=== PATIENT | male | born 1935 | race Caucasian/White ===

== ENCOUNTER 2016-11-06 07:47 | Day surgery (SDC) | payer MEDICARE ==
--- NOTE | ~2016-11-06 | OP ---
Record Of Operation [facility] [address] [place]. [address] NAME: DESMOND MCKEON : 35 STATUS : [facility] UNIT#: [id number] AGE: 81 ADM/REG DATE : 11/06/16 MR#: [id number] REPORT SERV DATE: 11/06/16 DICTATED BY: ANDRY PAUL DATE: 11/06/16 REPORT STATUS : Draft TRANSCRIBED BY: MODL DATE: 11/06/16 DATE OF PROCEDURE: 11/06/2016 PREOPERATIVE DIAGNOSIS: Left ureteral and renal calculi. POSTOPERATIVE DIAGNOSIS: Left ureteral and renal calculi. PROCEDURE PERFORMED: Cystoscopy, bilateral retrograde pyelogram, removal of left ureteral stone, flexible ureterorenoscopy with removal of two renal calculi, and left stent placement. ANESTHESIA: General. ESTIMATED BLOOD LOSS: Less than 5 mL. INDICATIONS: This is an 81-year-old white male with complaints of flank pain and hematuria leading to investigation with CT scan. This demonstrated a large proximal left ureteral stone with obstruction with a couple of other nonobstructing left-sided stones noted as well. We are planning endoscopic management. Risks of infection, bleeding, failure, need for further surgery have been discussed. PROCEDURE IN DETAIL: The patient was taken to the operating room and underwent a general anesthetic. He was placed in the lithotomy position on the table, and his external genitalia were sterilely prepped and draped. The 22-Hong Konger cystoscope sheath with 30-degree lens was inserted under direct vision per urethra with the aid of the video monitor. The anterior urethra was normal. The prostatic urethra showed evidence of a previous TURP and was wide open. The bladder was inspected and visibility was excellent. There was a stone that at the left orifice. The right orifice was normal. There were no mass lesions within the bladder. A pair of flexible grasping forceps were used to grab the stone located at the left ureteral orifice and gently extracted from the orifice and removed it intact. It was about 8 or 9 mm in size or so. A left retrograde pyelogram was then obtained showing him a fairly massively dilated ureter down to the UVJ. The renal collecting system was not quite as dilated. I was unable to see any specific stones on retrograde, but recalled him to have at least one, if not two, on previous CT imaging. An 0.038 guidewire was then advanced up into the collecting system of the kidney under fluoroscopic guidance. A 9.5/11-Hong Konger ureteral access sheath with obturator was advanced over this guidewire up into the mid ureter and a second guidewire was placed again into the collecting system of the kidney under fluoroscopic guidance. The sheath and obturator were replaced over one of the two guidewires leaving the other in place as a safety wire. The flexible ureteroscope was then advanced up through the access sheath into the mid ureter. It was actually a bit difficult to advance it up in the kidney because of the dilation and tortuosity of the ureter. The renal collecting system was not massively hydronephrotic, however. The collecting system was systematically inspected and visibility was excellent. A small lower pole left renal stone was removed using an NGage basket. He had a larger mid calyceal stone, which was grasped with the NGage basket and removed as well. The ureter was reinspected as the ureteroscope was withdrawn and no other stones or significant findings Record Of [address] [address] NAME: DESMOND MCKEON : 35 STATUS : [facility] PAT#: [id number] AGE: 81 ADM/REG DATE : 11/06/16 MR#: [id number] REPORT SERV DATE: 11/06/16 DICTATED BY: ANDRY PAUL DATE: 11/06/16 REPORT STATUS : Draft TRANSCRIBED BY: MARC DATE: 11/06/16 other than the dilatation were noted. Following extraction of those two calculi, the cystoscope was reinserted over the guidewire and a 6-Hong Konger x 26 cm Contour stent was advanced over the guidewire such that the proximal end of the stent was observed to coil in the collecting system of the kidney under fluoroscopic guidance and the distal end of the stent was visually observed to coil in the bladder following removal of the guidewire. The bladder was drained. All endoscopic apparatus was removed, and the patient was taken to recovery in stable condition. [place]/MARC Machelle Smith#: [id number] / [id number] CC: Andry Paul M.D.
[~2016-11-06 07:47] MED LIST: ALEVE220 MG PO; AMARYL1 MG PO; AMB5 PO; ANDROGEL5 TOP; APRES25 PO; ARICEPT5 PO; ASAB PO; BREO; BREO ELLIPTA INH; BREO INH; CAT2 PO; COREG12 PO; CYMBALTA60 PO; DIOV160 PO; FERROUS SULF325 M1 PO; FLOMAX4 PO; FORTAMET500 MG PO; GLUCPH PO; HYDROCHLOROT25 MG PO; IMDUR30 PO; KLOR-CON M1010 MEQ PO; KLOR-CON M2020 MEQ PO; LEVAQUIN5T PO; LIPITOR40 PO; LOP25 PO; LORTAB 5 PO; LYRICA50 PO; MAGOX4 PO; MAGTRATE500 MG PO; MELA3 PO; MELATONIN5 M1 PO; METANX PO; NEUR100 PO; NEUR300 PO; NEUR600 PO; NEXIUM40 PO; NORTHERA PO; NORV10 PO; NORV5 PO; ONGLYZA5 MG PO; PLAVIX PO; PRAVAC PO; PRILOSEC40 MG PO; PROAIR HFA INH; PROTONIX PO; RAPAFLO8 MG PO; SIN25 PO; SLOWMAG; SLOWMAG PO; TESS PO; TOPXL25 PO; TRADJENTA5 MG PO; VITAMIN D31000 UNIT PO; ZOL100 PO
[2016-11-06 08:22] LABS: BASOPHILS 0.2 %; BASOPHILS ABSOLUTE 0.02 10/3/uL (0.0-0.16); EOSINOPHILS 4.4 %; EOSINOPHILS ABSOLUTE 0.35 10/3/uL (0.0-0.53); HEMOGLOBIN 13.1 g/dL (13.6-17.8); IMMATURE GRANULOCYTES 0.2 %; IMMATURE GRANULOCYTES ABSOLUTE 0.02 10/3/uL (0.0-0.11); LYMPHOCYTES 27.6 %; LYMPHOCYTES ABSOLUTE 2.22 10/3/uL (0.67-4.30); MEAN CORPUS HGB CONC 33.6 g/dL (32.0-36.0); MEAN CORPUSCULAR HEMOGLOB 31.6 pg (26.0-34.0); MEAN PLATELET VOLUME 9.6 fL (9.2-13.0); MONOCYTES 10.8 %; MONOCYTES ABSOLUTE 0.87 10/3/uL (0.21-1.20); NEUTROPHILS 56.8 %; NEUTROPHILS ABSOLUTE 4.56 10/3/uL (2.02-8.40); PLATELET COUNT 179 10/3/uL (150-400); RBC DISTRIBUTION WIDTH 13.7 % (12.0-16.0); RED CELL COUNT 4.15 10/6/uL (4.7-6.1)
[2016-11-06 08:23] LABS: MANUAL DIFF NO %
[2016-11-06 08:31] LABS: INTERNATIONAL NORMAL RATI 1.1 UNITS (-)
[2016-11-06 08:32] LABS: BUN (BLOOD UREA NITROGEN) 22 MG/DL (6-23); CALCIUM, SERUM 9.1 MG/DL (8.5-10.4); CHLORIDE, SERUM 109 MMOL/L (96-112); CO2 (CARBON DIOXIDE) 31 MMOL/L (24-34); CREATININE 1.01 MG/DL (0.70-1.30); GFR AFRICAN AMERICAN 80 ML/MIN (>=60); GFR NON AFRICAN AMERICAN 69 ML/MIN (>=60); GLUCOSE, SERUM 122 MG/DL (60-99); PARTIAL THROMBO TIME 35.7 SEC (22.5-37.2); POTASSIUM, SERUM 4.4 MMOL/L (3.5-5.3); SODIUM, SERUM 143 MMOL/L (135-148)
[2017-01-10] MEDS ORDERED: PCET PO (10:53)
== END 2016-11-06 14:29 | disposition home or self-care (01) ==
LOC: SDC 07:47
PROVIDERS: Urology
PROC: 0TC78ZZ Extirpation of Matter from Left Ureter, Via Natural or Artificial Opening Endoscopic (ICD-10-PCS; principal; 2016-11-06 08:45)
PROC: 0T778DZ Dilation of Left Ureter with Intraluminal Device, Via Natural or Artificial Opening Endoscopic (ICD-10-PCS; 2016-11-06 08:45)
DX: N20.2 Calculus of kidney with calculus of ureter (principal); E11.9 Type 2 diabetes mellitus without complications; I10 Essential (primary) hypertension; I25.10 Atherosclerotic heart disease of native coronary artery without angina pectoris; J44.9 Chronic obstructive pulmonary disease, unspecified; I95.1 Orthostatic hypotension; R25.1 Tremor, unspecified; F32.9 Major depressive disorder, single episode, unspecified; R32 Unspecified urinary incontinence; E78.00 Pure hypercholesterolemia, unspecified; K21.9 Gastro-esophageal reflux disease without esophagitis; G57.93 Unspecified mononeuropathy of bilateral lower limbs; F41.9 Anxiety disorder, unspecified; F03.90 Unspecified dementia, unspecified severity, without behavioral disturbance, psychotic disturbance, mood disturbance, and anxiety; Z95.5 Presence of coronary angioplasty implant and graft; Z90.79 Acquired absence of other genital organ(s); Z85.820 Personal history of malignant melanoma of skin; Z87.442 Personal history of urinary calculi; Z98.52 Vasectomy status; Z90.49 Acquired absence of other specified parts of digestive tract; Z88.0 Allergy status to penicillin; Z87.891 Personal history of nicotine dependence
CPT/HCPCS: 71010; 74420; 80048; 82962; 85025; 85610; 85730; 93005; C1758; C2617; J2405; J2710; J3010; Q9967

== ENCOUNTER 2016-11-20 10:00 | Inpatient (IN) | payer MEDICARE ==
--- NOTE | ~2016-11-20 | DS ---
Discharge Summary [address] [place]. [address] NAME: DESMOND MCKEON : 35 STATUS : DIS IN PAT#: [id number] AGE: 81 ADM/REG DATE : 11/20/16 MR#: [id number] REPORT SERV DATE: 12/05/16 DICTATED BY: ANDRY PAUL DATE: 12/04/16 REPORT STATUS : Draft TRANSCRIBED BY: MARC DATE: 12/04/16 Data Collection from hospitalization DISCHARGE DIAGNOSIS(ES): 1. Gross hematuria. 2. Clot retention. 3. Right renal mass. 4. Diabetes. 5. Hypertension. 6. Former smoker. 7. Arthritis. 8. Chronic obstructive pulmonary disease. 9. Mcgovern's esophagus. 10.Dysphagia. 11.Neuropathy. 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 13.Anxiety. 14.Coronary artery disease. CONSULTATIONS: None. PROCEDURES PERFORMED: 1. Cystoscopy, bilateral retrograde pyelogram, right flexible ureterorenoscopy with biopsy and fulguration of right renal pelvic tumor, bladder biopsy and fulguration 11/23/2016. 2. CT scan of the abdomen and pelvis without contrast 11/20/2016. PATHOLOGY: Urine right renal collecting system. Cytology (thin prep)-urinary atypia favor reactive (acute inflammation). Renal pelvic "mass" right biopsy-fibrin clumps with acute inflammatory cells, negative for malignancy. "Lesion" adjacent to right orifice biopsies- benign mucosa with acute and chronic inflammation. No tumor seen. Urinary bladder posterior wall biopsy-benign mucosa with cystitis cystica and hemorrhage. No tumor seen. MEDICATIONS: 1. Lipitor 40 mg at bedtime. 2. Sinemet CR one tablet three times a day. 3. Coreg 12.5 mg twice a day. 4. Catapres 0.2 mg as needed. 5. Aricept 5 mg at bedtime. 6. Cymbalta 60 mg daily. 7. Ferrous sulfate 325 mg at noon. 8. Sierra 180 mg daily. 9. Neurontin 300 mg three times a day. 10.Amaryl 1 mg daily. 11.Apresoline 25 mg three times a day. 12.Mag-Ox 400 mg three times a day. 13.Melatonin 5 mg at bedtime. 14.Glucophage 500 mg twice a day. 15.Lopressor 12.5 mg daily. Discharge Summary [address] [place]. [address] NAME: DESMOND MCKEON : 35 STATUS : DIS IN PAT#: [id number] AGE: 81 ADM/REG DATE : 11/20/16 MR#: [id number] REPORT SERV DATE: 12/05/16 DICTATED BY: ANDRY PAUL DATE: 12/04/16 REPORT STATUS : Draft TRANSCRIBED BY: MODL DATE: 12/04/16 16.Prilosec 40 mg daily. 17.Percocet 5/325 one tablet every four hours as needed. 18.Potassium chloride SR 10 mEq twice a day. 19.Onglyza 5 mg daily. 20.Rapaflo 8 mg daily. 21.Northera 100 mg three times a day. 22.ProAir as instructed. CONDITION AT DISCHARGE: Stable. DISPOSITION: The patient was discharged home on 2000-calorie diabetic diet with activities as instructed. He would follow up with Dr. Andry Paul as instructed. He would follow up with his primary care provider as needed. HOSPITAL COURSE: This is an 81-year-old man who has a history of bilateral stone disease and persistent intermittent gross hematuria. He had been hospitalized with gross hematuria and clot retention. A CT scan was suspicious for a right renal mass as well as obstructive uropathy on the right. Treatment options were discussed, and it was elected to proceed with surgical intervention. He was admitted to the hospital at this time for further evaluation and treatment. Upon admission, the Matias catheter was going to remain in place with continuous bladder irrigation. Empiric antibiotic coverage was started. Anticoagulation would be held. We would follow serial labs. The following day, his urine was clear. He had no new complaints. On 11/23/2016, he was taken to the operating room where he underwent the above- mentioned procedure. He tolerated this well, and there were no complications. Discharge planning was performed. On 11/24/2016, he had no new complaints. Hematuria had resolved. He had had voiding symptoms prior to admission. The Matias catheter was in place and was draining well. Discharge instructions were given. Due to his improved and stable condition, he was discharged home with the above-stated instructions. Information collected by: Savanna Bauman I submit the above information as my discharge summary. [place] Andry aPul M.D. / [id number] CC: Machelle Wagner MD
--- NOTE | ~2016-11-20 | HP ---
History And Physical [place] [id number] [facility] [place]. [address] NAME: DESMOND RODRIGUEZ : 35 STATUS : ADM IN [facility]#: [id number] AGE: 81 ADM/REG DATE : 11/20/16 MR#: [id number] REPORT SERV DATE: 11/21/16 DICTATED BY: ANDRY PAUL DATE: 11/21/16 REPORT STATUS : Draft TRANSCRIBED BY: MODL DATE: 11/21/16 DATE OF ADMISSION: 11/20/2016 HISTORY: This is an 81-year-old white male who presented to the emergency room earlier today with essentially in clot retention. A Matias catheter was placed and continuous irrigation was initiated, and he has had a fair amount of clot irrigated from the bladder by the ER staff. A CT of the abdomen and pelvis was performed which demonstrated a couple of nonobstructing stones within the right kidney and some abnormal material in the right renal pelvis which could be either clot or tumor. In addition, some abnormal density material was noted in the ureter and the bladder as well. There was some degree of right hydronephrosis present. There was no specific left hydronephrosis or stone noted. Bilateral renal cysts were recognized. Mr. Rodriguez had just undergone endoscopic removal of two relatively large significantly obstructing left ureteral stones on 11/06/2016. His ureteral stent was removed last week. He had actually been having intermittent bleeding and flank pain for several weeks. He said after his stent was removed. He initially did okay while on Cipro antibiotics coverage, but as soon as this was stopped, he started bleeding again. Urologic history otherwise includes a remote TURP. MEDICAL HISTORY: Includes a history of coronary artery disease, status post coronary artery stent placement three or four years ago. He is chronically anticoagulated with aspirin and Plavix. He also has diabetes, arthritis, and COPD. SURGICAL HISTORY: Includes his recent endoscopic surgery for stones, history of two back surgeries, cardiac stent placement, bilateral inguinal hernia repair, and appendectomy. SOCIAL HISTORY: He is a . He lives with his family. He is a social drinker, and he has not smoked in many years. MEDICATION: Medication list is extensive and includes albuterol, aspirin, Lipitor, Sinemet, Coreg, Catapres, Plavix, Aricept, Cymbalta, iron, Sierra, Neurontin, Amaryl, Apresoline, Mag-Ox, melatonin, Mobic, Glucophage, Lopressor, Prilosec, Percocet, potassium, Onglyza, Rapaflo, Northera. ALLERGIES: HE IS ALLERGIC TO PENICILLIN. PHYSICAL EXAMINATION: GENERAL: He is a very pleasant white male in no distress at this time. He is alert, oriented, and conversive. VITAL SIGNS: He is afebrile. His vital signs are stable. Pupils equal, round, and reactive. Extraocular movements intact. Oropharynx looks clear. NECK: Supple. No adenopathy. HEART: Regular. LUNGS: Clear. ABDOMEN: Soft. Perhaps mild suprapubic and mild right upper quadrant tenderness. BACK: No significant CVA tenderness. : Penis is normal with a Matias catheter indwelling. His catheter is draining light pink History And Physical [address] [address] NAME: DESMOND RODRIGUEZ MALTESE : 35 STATUS : ADM IN [facility]#: [id number] AGE: 81 ADM/REG DATE : 11/20/16 MR#: [id number] REPORT SERV DATE: 11/21/16 DICTATED BY: ANDRY PAUL DATE: 11/21/16 REPORT STATUS : Draft TRANSCRIBED BY: MARC DATE: 11/21/16 urine with CBI. Testes, epididymitis, spermatic cords are normal. Prostate gland was not examined. EXTREMITIES: No cyanosis. LABORATORY VALUES: White cell count is 6.9, H and H 13.3 and 39.4. Urinalysis on admission showed 182 red cells and no white cells per high-powered field. CMP shows a BUN of 18, creatinine of 0.85. Liver functions are normal. PT and PTT are 13.8 and 32.4. Urine culture has not been consistent with UTI. CT of the abdomen and pelvis is as described in the HPI. IMPRESSION: 1. Gross hematuria with clot retention, now with a Matias catheter and continuous irrigation. 2. Abnormal right kidney on CT with right hydronephrosis, right renal stones, and material in abnormal density within the collecting system and ureter either consistent with blood or potential blood clot or potentially tumor. 3. Status post recent endoscopic left ureteral stone extraction. 4. Coronary artery disease with cardiac stent, chronically anticoagulated on aspirin and Plavix, now held since either Saturday or early Saturday. 5. Remote history of TURP. 6. Hyperglycemia/diabetes. PLAN: We will continue Matias and CBI and empiric antibiotic coverage as well. I have discussed the situation with the patient and his daughter who is a nurse. We are going to plan cystoscopy, clot evac if needed, retrograde studies, right ureterorenoscopy with possible biopsy fulguration and/or stone manipulation on Saturday. The procedure and risks of infection, bleeding, failure, need for further surgery, up to and including removal of the right kidney have been reviewed. We will continue to hold all anticoagulation, and we will follow serial labs for now. DS/MODL Andry Paul M.D. / [id number] CC: Machelle Wagner MD
--- NOTE | ~2016-11-20 | OP ---
Record Of Operation [facility] [address] [place]. [address] NAME: DESMOND MCEKON : 35 STATUS : ADM IN PAT#: [id number] AGE: 81 ADM/REG DATE : 11/20/16 MR#: [id number] REPORT SERV DATE: 11/23/16 DICTATED BY: ANDRY PAUL DATE: 11/23/16 REPORT STATUS : Draft TRANSCRIBED BY: MODL DATE: 11/23/16 DATE OF PROCEDURE: 11/23/2016 PREOPERATIVE DIAGNOSES: Gross hematuria, clot retention, right renal mass. POSTOPERATIVE DIAGNOSES: Gross hematuria, clot retention, right renal mass. PROCEDURE PERFORMED: 1. 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 2. Bladder biopsy and fulguration. SURGEON: Andry Paul M.D. ANESTHESIA: General. ESTIMATED BLOOD LOSS: 15 to 20 mL. INDICATIONS: This is an 81-year-old white male with a history of bilateral stone disease and persistent intermittent gross hematuria. He has been hospitalized with gross hematuria and clot retention, and a CT scan has been suspicious for a right renal mass as well as obstructive uropathy on the right. We are planning endoscopic assessment. Risk of infection, bleeding, failure, and need for further surgery have been discussed. DESCRIPTION OF PROCEDURE: The patient was taken to the operating room and underwent a general anesthetic. He was placed in the lithotomy position on the table, and his external genitalia were sterilely prepped and draped. The 22-Nepalese cystoscope sheath with 30-degree lens was inserted under direct vision per urethra with the aid of the video monitor. The anterior urethra looked normal. The prostatic urethra showed evidence of a previous TURP and was generally open. There was no overt source of bleeding within the prostate. The bladder was inspected as well. There was abnormal inflammatory change around the right orifice. The left orifice looked more normal. The bladder was moderately trabeculated. There was reddish irritative change primarily on the posterior wall, presumably from the indwelling Matias. There were no dede large tumors within the bladder. A right retrograde pyelogram was obtained that showed a very capacious ureter right down to the UVJ. The ureter was dilated and tortuous and the renal collecting system was also dilated. It looked like there was a vague filling defect in the lower portion of the renal pelvis, but it was really difficult to see. An 0.038 guidewire was advanced up into the kidney without difficulty and an 11/13-Nepalese ureteral access sheath with obturator was passed up into the mid ureter. A second guidewire was placed through the access sheath and the sheath and obturator were then reinserted over one of the two guidewires leaving the other in place as a safety wire. The flexible ureteroscope was advanced through the access sheath up to roughly the mid ureter, and this was advanced all the way up into the renal pelvis. I did not notice any overt tumors in the ureter. The visibility in the renal collecting system was somewhat poor. I aspirated almost 20 mL of bloody fluid, some of this was sent for culture and some for cytology. I then inspected the renal collecting system. It looked Record Of [address] [place]. 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 The upper pole calyx was free of tumor, none of the other calices were particularly well seen. I took three cold cup biopsies of the renal pelvic tumor and fulgurated this area lightly with the Bugbee electrode. Following this, the scope was withdrawn down through the ureter. There was some clot in the lower third. I did not specifically visualized any tumor in the ureter. The access sheath and ureteroscope were removed from the bladder and the cystoscope was replaced over the guidewire and a 6-Nepalese x 26 cm [place] stent was advanced over the guidewire such that the proximal end of the stent was observed to coil in the pelvis of the kidney under fluoroscopic guidance and the distal end of the stent was visually observed to coil in the bladder following removal of the guidewire. A left retrograde pyelogram was obtained, which showed a dilated ureter down to the UVJ. The left collecting system did not appear hydronephrotic, it drained somewhat sluggishly. I then took a cold cup biopsy of abnormal tissue just immediately adjacent to the right orifice and also on the posterior bladder wall. These sites were fulgurated with the Bugbee electrode. The endoscopic apparatus was removed from the bladder and a 20-Nepalese 3-way Matias catheter was placed to continuous irrigation with return of essentially clear urine. He tolerated the procedure well and was taken to recovery in stable condition. [place]/MARC Andry Paul M.D. / [id number] CC: Machelle Wagner MD
[2016-11-20 08:57] LABS: WBC (NOT ORDERED) (RFLEX) 0 (0-5)
[2016-11-20 09:02] LABS: BASOPHILS 0.4 %; BASOPHILS ABSOLUTE 0.03 10/3/uL (0.0-0.16); EOSINOPHILS 4.1 %; EOSINOPHILS ABSOLUTE 0.28 10/3/uL (0.0-0.53); ER CBC TAT 0 Hrs 07 Mins; HEMATOCRIT 39.4 % (40.0-51.0); HEMOGLOBIN 13.3 g/dL (13.6-17.8); IMMATURE GRANULOCYTES 0.1 %; IMMATURE GRANULOCYTES ABSOLUTE 0.01 10/3/uL (0.0-0.11); LYMPHOCYTES 30.6 %; LYMPHOCYTES ABSOLUTE 2.11 10/3/uL (0.67-4.30); MEAN CORPUS HGB CONC 33.8 g/dL (32.0-36.0); MEAN CORPUSCULAR HEMOGLOB 31.2 pg (26.0-34.0); MEAN CORPUSCULAR VOLUME 92.5 fL (80-100); MEAN PLATELET VOLUME 10.4 fL (9.2-13.0); MONOCYTES ABSOLUTE 0.55 10/3/uL (0.21-1.20); NEUTROPHILS 56.8 %; NEUTROPHILS ABSOLUTE 3.92 10/3/uL (2.02-8.40); PLATELET COUNT 178 10/3/uL (150-400); RBC DISTRIBUTION WIDTH 13.8 % (12.0-16.0); RED CELL COUNT 4.26 10/6/uL (4.7-6.1); WHITE BLOOD CELLS 6.9 10/3/uL (4.5-10.5)
[2016-11-20 09:05] LABS: MANUAL DIFF NO %
[2016-11-20 09:08] LABS: ASCORBIC ACID (UR NOT ORDER) NEG (NEG); BILIRUBIN, URINE NEGATIVE (NEG); ER URINALYSIS TAT 0 Hrs 13 Mins; KETONE, URINE NEGATIVE (NEG); LEUKOCYTE ESTERASE(NOT OR NEG (NEG); NITRITE (URINE) NEG (NEG)
[2016-11-20 09:19] LABS: ALBUMIN 3.8 G/DL (3.5-5.0); CALCIUM, SERUM 9.2 MG/DL (8.5-10.4); CHLORIDE, SERUM 108 MMOL/L (96-112); CREATININE 0.85 MG/DL (0.70-1.30); GFR AFRICAN AMERICAN 95 ML/MIN (>=60); GFR NON AFRICAN AMERICAN 82 ML/MIN (>=60); GLUCOSE, SERUM 119 MG/DL (60-99); SGOT(AST) 22 U/L (5-40); SGPT(ALT) 29 U/L (5-65); SODIUM, SERUM 143 MMOL/L (135-148); TOTAL BILIRUBIN 0.7 MG/DL (0-1.2); TOTAL PROTEIN 6.8 G/DL (6.0-8.5)
[2016-11-20 09:20] LABS: A/G RATIO 1.3 (0.7-1.9); ALKALINE PHOSPHATASE 91 U/L (45-117); BUN (BLOOD UREA NITROGEN) 18 MG/DL (6-23); CO2 (CARBON DIOXIDE) 26 MMOL/L (24-34)
[2016-11-20 10:10] LABS: INTERNATIONAL NORMAL RATI 1.1 UNITS (-); PARTIAL THROMBO TIME 32.4 SEC (22.5-37.2); PROTIME (NOT ORD) 13.8 SEC (12.0-14.5)
[2016-11-20] MEDS ORDERED: SINCR25100 PO (13:14)
[2016-11-20] MEDS ORDERED: ASAB PO (13:14)
[2016-11-20] MEDS ORDERED: COREG12 PO (13:14)
[2016-11-20] MEDS ORDERED: LIPITOR40 PO (13:14)
[2016-11-20] MEDS ORDERED: PLAVIX PO (13:14)
[2016-11-20] MEDS ORDERED: ALLEGRA180 PO (13:15)
[2016-11-20] MEDS ORDERED: CYMBALTA60 PO (13:15)
[2016-11-20] MEDS ORDERED: NEUR300 PO (13:15)
[2016-11-20] MEDS ORDERED: FERROUS SULF325 M1 PO (13:15)
[2016-11-20] MEDS ORDERED: AMARYL1 MG PO (13:16)
[2016-11-20] MEDS ORDERED: ARICEPT5 PO (13:16)
[2016-11-20] MEDS ORDERED: MELATONIN5 M1 PO (13:16)
[2016-11-20] MEDS ORDERED: APRES25 PO (13:16)
[2016-11-20] MEDS ORDERED: MAGOX4 PO (13:16)
[2016-11-20] MEDS ORDERED: GLUCPH PO (13:17)
[2016-11-20] MEDS ORDERED: LOP25 PO (13:18)
[2016-11-20] MEDS ORDERED: NORTHERA PO (13:18)
[2016-11-20] MEDS ORDERED: MOBIC7.5 PO (13:18)
[2016-11-20] MEDS ORDERED: ONGLYZA5 MG PO (13:19)
[2016-11-20] MEDS ORDERED: PRILOSEC40 MG PO (13:19)
[2016-11-20] MEDS ORDERED: KDUR10 PO (13:19)
[2016-11-20] MEDS ORDERED: RAPAFLO8 MG PO (13:20)
[2016-11-20] MEDS ORDERED: PROAIR HFA INH (13:20)
[2016-11-20] MEDS ORDERED: PCET PO (13:20)
[2016-11-20] MEDS ORDERED: CAT2 PO (13:20)
[2016-11-22 06:26] LABS: BASOPHILS 0.1 %; BASOPHILS ABSOLUTE 0.01 10/3/uL (0.0-0.16); EOSINOPHILS 2.5 %; IMMATURE GRANULOCYTES 0.1 %; IMMATURE GRANULOCYTES ABSOLUTE 0.01 10/3/uL (0.0-0.11); LYMPHOCYTES 22.8 %; LYMPHOCYTES ABSOLUTE 1.83 10/3/uL (0.67-4.30); MEAN CORPUS HGB CONC 33.5 g/dL (32.0-36.0); MEAN CORPUSCULAR HEMOGLOB 31.5 pg (26.0-34.0); MONOCYTES 13.1 %; MONOCYTES ABSOLUTE 1.05 10/3/uL (0.21-1.20); NEUTROPHILS 61.4 %; NEUTROPHILS ABSOLUTE 4.94 10/3/uL (2.02-8.40); RBC DISTRIBUTION WIDTH 13.8 % (12.0-16.0)
[2016-11-22 06:27] LABS: HEMATOCRIT 31.3 % (40.0-51.0); HEMOGLOBIN 10.5 g/dL (13.6-17.8); PLATELET COUNT 121 10/3/uL (150-400); RED CELL COUNT 3.33 10/6/uL (4.7-6.1)
[2016-11-22 06:28] LABS: MANUAL DIFF NO %
[2016-11-22 06:39] LABS: CALCIUM, SERUM 8.3 MG/DL (8.5-10.4); CHLORIDE, SERUM 106 MMOL/L (96-112); CO2 (CARBON DIOXIDE) 26 MMOL/L (24-34); GFR AFRICAN AMERICAN 47 ML/MIN (>=60); GFR NON AFRICAN AMERICAN 41 ML/MIN (>=60); GLUCOSE, SERUM 105 MG/DL (60-99); SODIUM, SERUM 138 MMOL/L (135-148)
[2016-11-22 06:41] LABS: BUN (BLOOD UREA NITROGEN) 23 MG/DL (6-23); CREATININE 1.57 MG/DL (0.70-1.30)
[2016-11-24 06:08] LABS: BASOPHILS 0.3 %; BASOPHILS ABSOLUTE 0.02 10/3/uL (0.0-0.16); EOSINOPHILS 5.6 %; EOSINOPHILS ABSOLUTE 0.41 10/3/uL (0.0-0.53); HEMATOCRIT 32.6 % (40.0-51.0); HEMOGLOBIN 10.9 g/dL (13.6-17.8); IMMATURE GRANULOCYTES 0.3 %; IMMATURE GRANULOCYTES ABSOLUTE 0.02 10/3/uL (0.0-0.11); LYMPHOCYTES ABSOLUTE 1.33 10/3/uL (0.67-4.30); MEAN CORPUS HGB CONC 33.4 g/dL (32.0-36.0); MEAN CORPUSCULAR HEMOGLOB 31.2 pg (26.0-34.0); MEAN CORPUSCULAR VOLUME 93.4 fL (80-100); MEAN PLATELET VOLUME 10.2 fL (9.2-13.0); MONOCYTES 10.4 %; MONOCYTES ABSOLUTE 0.77 10/3/uL (0.21-1.20); NEUTROPHILS 65.4 %; NEUTROPHILS ABSOLUTE 4.82 10/3/uL (2.02-8.40); PLATELET COUNT 140 10/3/uL (150-400); RBC DISTRIBUTION WIDTH 13.5 % (12.0-16.0); RED CELL COUNT 3.49 10/6/uL (4.7-6.1); WHITE BLOOD CELLS 7.4 10/3/uL (4.5-10.5)
[2016-11-24 06:10] LABS: MANUAL DIFF NO %
[2016-11-24 06:16] LABS: CALCIUM, SERUM 8.3 MG/DL (8.5-10.4); CHLORIDE, SERUM 109 MMOL/L (96-112); CO2 (CARBON DIOXIDE) 29 MMOL/L (24-34); CREATININE 1.21 MG/DL (0.70-1.30); GFR AFRICAN AMERICAN 65 ML/MIN (>=60); GFR NON AFRICAN AMERICAN 56 ML/MIN (>=60); GLUCOSE, SERUM 108 MG/DL (60-99); POTASSIUM, SERUM 3.8 MMOL/L (3.5-5.3); SODIUM, SERUM 142 MMOL/L (135-148)
[2016-11-24 06:17] LABS: BUN (BLOOD UREA NITROGEN) 15 MG/DL (6-23)
[2017-01-10] MEDS ORDERED: PCET PO (10:53)
== END 2016-11-24 15:24 | disposition home or self-care (01) | DRG 660 ==
LOC: ER 10:00 → 4SO 14:41
PROVIDERS: Nurse Practitioner Family; Urology
PROC: 0TBB8ZX Excision of Bladder, Via Natural or Artificial Opening Endoscopic, Diagnostic (ICD-10-PCS; principal; 2016-11-23 12:45)
PROC: 0TB38ZX Excision of Right Kidney Pelvis, Via Natural or Artificial Opening Endoscopic, Diagnostic (ICD-10-PCS; principal; 2016-11-23 12:45)
PROC: 0T5B8ZZ Destruction of Bladder, Via Natural or Artificial Opening Endoscopic (ICD-10-PCS; principal; 2016-11-23 12:45)
PROC: 0T538ZZ Destruction of Right Kidney Pelvis, Via Natural or Artificial Opening Endoscopic (ICD-10-PCS; principal; 2016-11-23 12:45)
PROC: BT141ZZ Fluoroscopy of Kidneys, Ureters and Bladder using Low Osmolar Contrast (ICD-10-PCS; principal; 2016-11-23 12:45)
DX: N13.2 Hydronephrosis with renal and ureteral calculous obstruction (principal); E11.65 Type 2 diabetes mellitus with hyperglycemia; J44.9 Chronic obstructive pulmonary disease, unspecified; N28.89 Other specified disorders of kidney and ureter; I25.10 Atherosclerotic heart disease of native coronary artery without angina pectoris; Z79.82 Long term (current) use of aspirin; Z79.02 Long term (current) use of antithrombotics/antiplatelets; Z79.84 Long term (current) use of oral hypoglycemic drugs; Z79.899 Other long term (current) drug therapy; Z87.891 Personal history of nicotine dependence; Z87.442 Personal history of urinary calculi; Z88.0 Allergy status to penicillin; Z95.5 Presence of coronary angioplasty implant and graft; M19.90 Unspecified osteoarthritis, unspecified site; Z79.891 Long term (current) use of opiate analgesic; R31.0 Gross hematuria
CPT/HCPCS: 74176; 74420; 80048; 80053; 81001; 82962; 83690; 85025; 85610; 85730; 87015; 87070; 87075; 87102; 87116; 87205; 88173; 88305; 94640; 96374; 96375; 96376; 99285; A9270-GY; C1758; C1769; C2617; J1170; J1956; J2405; J2710; J3010; Q9967